=== PATIENT | male | born 1980 | race Caucasian/White ===

== ENCOUNTER 2020-04-14 09:47 | Day surgery (SDC) | payer OTHER ==
[~2020-04-14] VITALS: Ht 180.3 cm; Wt 104.3 kg
[~2020-04-14 09:47] MED LIST: BUSP10 PO; CYCL10 PO; PROAIR RESPICL90 MCG INH; ROPI.25 PO
[2020-04-14] MEDS ORDERED: FLUT1DIS5 INH (10:55)
== END 2020-04-14 13:18 | disposition home or self-care (01) ==
LOC: ORSCSDS 09:47
PROVIDERS: Otolaryngology
PROC: 09TL7ZZ Resection of Nasal Turbinate, Via Natural or Artificial Opening (ICD-10-PCS; principal; 2020-04-14 11:00)
PROC: 09BM3ZZ Excision of Nasal Septum, Percutaneous Approach (ICD-10-PCS; principal; 2020-04-14 11:00)
DX: J34.2 Deviated nasal septum (principal); J34.3 Hypertrophy of nasal turbinates; J45.909 Unspecified asthma, uncomplicated; K21.9 Gastro-esophageal reflux disease without esophagitis; Z79.899 Other long term (current) drug therapy
CPT/HCPCS: J1100; J2250; J2405; J2704; J2710; J3010; J7120

== ENCOUNTER 2021-06-22 11:43 | Day surgery (SDC) | payer OTHER ==
[~2021-06-22] VITALS: Ht 180.3 cm; Wt 97.5 kg
[~2021-06-22 11:43] MED LIST changes: +FLUT1DIS5 INH
[2021-06-22] MEDS ORDERED: VALA500 (12:17)
--- NOTE | 2021-06-22 14:39 | NUR ---
06/22/21 1439 Virgen Coyle MONITOR NOT PICKING UP SPO2, PLACE PULSE OXIMETER ON FINGER THROUGHOUT CASE. SATS REMAINED 98-100% ON 3L O2 VIA NC
== END 2021-06-22 14:03 | disposition home or self-care (01) ==
LOC: ORSCSDS 11:43
PROVIDERS: Internal Medicine Gastroenterology
PROC: 0DB68ZX Excision of Stomach, Via Natural or Artificial Opening Endoscopic, Diagnostic (ICD-10-PCS; principal; 2021-06-22 13:00)
PROC: 0DB98ZX Excision of Duodenum, Via Natural or Artificial Opening Endoscopic, Diagnostic (ICD-10-PCS; principal; 2021-06-22 13:00)
DX: R10.9 Unspecified abdominal pain (principal); R11.0 Nausea; R14.0 Abdominal distension (gaseous); R19.7 Diarrhea, unspecified; K62.5 Hemorrhage of anus and rectum; J45.909 Unspecified asthma, uncomplicated; Z87.891 Personal history of nicotine dependence; Z79.899 Other long term (current) drug therapy
CPT/HCPCS: 88305; 88342; J2250; J2704; J7120

== ENCOUNTER → 2021-07-21 | Outpatient (CLI) | payer OTHER ==
[~2021-07-21] MED LIST changes: +VALA500
== END ==
LOC: LAB SHORT 14:08
DX: R21 Rash and other nonspecific skin eruption (principal)
CPT/HCPCS: 88312

== ENCOUNTER → 2022-10-06 | Outpatient (CLI) | payer OTHER | LOC: LAB SHORT 16:45 | DX: R30.0 Dysuria (principal) | CPT/HCPCS: 87086 ==

== ENCOUNTER 2023-04-04 07:01 | Day surgery (SDC) | payer OTHER ==
[~2023-04-04] VITALS: Ht 180.3 cm; Wt 104.2 kg
[2023-04-04] MEDS ORDERED: MELO7.5 (07:13)
[2023-04-04] MEDS ORDERED: OMEP20ER (07:15)
--- NOTE | 2023-04-04 08:36 | NUR ---
04/04/23 0836 Anyi Pritchett 5ML NORMAL SALINE USED TO ELEVATE POLYP
[2023-04-04 08:47] VITALS: BP 120/82
== END 2023-04-04 09:05 | disposition home or self-care (01) ==
LOC: ORSCSDS 07:01
PROVIDERS: Internal Medicine Gastroenterology
PROC: 0DBN8ZX Excision of Sigmoid Colon, Via Natural or Artificial Opening Endoscopic, Diagnostic (ICD-10-PCS; principal; 2023-04-04 08:15)
DX: K62.5 Hemorrhage of anus and rectum (principal); R19.4 Change in bowel habit; R10.9 Unspecified abdominal pain; K63.5 Polyp of colon; K64.8 Other hemorrhoids; Z87.891 Personal history of nicotine dependence; Z79.899 Other long term (current) drug therapy
CPT/HCPCS: 88305; J2704; J7120

== ENCOUNTER → 2024-01-22 | Outpatient (CLI) | payer OTHER ==
[~2024-01-22] MED LIST changes: +MELO7.5; +OMEP20ER
== END ==
LOC: LAB SHORT 15:30 → LAB 15:30
DX: A49.02 Methicillin resistant Staphylococcus aureus infection, unspecified site (principal); B95.62 Methicillin resistant Staphylococcus aureus infection as the cause of diseases classified elsewhere
CPT/HCPCS: 87070; 87077; 87081; 87186; 87205